=== PATIENT | male | born 1990 | race Hispanic/Latino ===

== ENCOUNTER → 2021-01-15 | Emergency (ER) | payer OTHER, SELFPAY ==
[~2021-01-15] MED LIST: HYDROcodone/Acetaminophen 10/325 mg Tablet ONE
== END ==
LOC: ERS 06:11
DX: T20.00XA Burn of unspecified degree of head, face, and neck, unspecified site, initial encounter (principal); T31.0 Burns involving less than 10% of body surface; V99.XXXA Unspecified transport accident, initial encounter; W22.11XA Striking against or struck by driver side automobile airbag, initial encounter
CPT/HCPCS: 70450; 70486; 72125